=== PATIENT | female | born 1985 | race Caucasian/White ===

== ENCOUNTER 2016-07-22 11:07 | Emergency (ER) | payer OTHER ==
[~2016-07-22] VITALS: Ht 154.9 cm; Wt 75.3 kg
[~2016-07-22 11:07] MED LIST: AMOXICILLIN 50500 M1 PO; COLACE 100 MG100 MG PO; IBUPROFEN 200200 M1 PO; NAPROSYN500 MG PO; NOHOMEMEDICATIONS; NORCO 5-325 TA1 EACH PO; ONDANSETRON HCL4 M2 PO; PHENERGAN 25 MG25 M1 PO; PRENATAL COMPL1 EACH PO; TRAMADOL 50 MG50 MG PO; TYLENOL325 MG PO; ULTRAM 50MG TAB50 MG PO; VALIUM5 MG PO; ZANTAC 150MG T150 M1 PO; ZOFRAN ODT4 MG PO
[2016-07-22] MEDS ORDERED: METFORMIN HCL500 MG PO (11:42)
[2016-07-22 11:50] LABS: ABSOLUTE NEUTROPHILS 5.3 thou/uL (1.4-8.2); BASOPHILS 1.1 % (0.0-2.0); HEMATOCRIT 43.2 % (37.0-47.0); LYMPHOCYTES 31.3 % (24.0-44.0); MCH 30.2 pg (26.0-34.0); MCHC 34.7 % (28.0-37.0); MCV 87.1 fL (80.0-100.0); PLATELET COUNT 294 thou/uL (150-400); POLYS 57.6 % (36.0-66.0); RBC 4.96 mil/uL (4.20-5.00); RDW 12.5 % (10.5-14.5); WBC 9.1 thou/uL (4.0-11.0)
[2016-07-22 11:51] LABS: MANUAL DIFF NO
[2016-07-22 12:00] LABS: CALCIUM 9.6 mg/dL (8.5-10.1); CREATININE 0.9 mg/dL (0.6-1.3); POTASSIUM 3.7 mmol/L (3.5-5.1)
[2016-07-22 12:09] LABS: ALBUMIN 3.8 g/dL (3.4-5.0); TOTAL BILIRUBIN 0.3 mg/dL (<0.1-1.0); TOTAL PROTEIN 7.6 g/dL (6.4-8.2)
[2016-07-22 12:30] LABS: URINE BILIRUBIN NEGATIVE (Negative); URINE BLOOD NEGATIVE (Negative); URINE COLOR YELLOW; URINE GLUCOSE-RANDOM* NEGATIVE (Negative); URINE KETONES NEGATIVE (Negative); URINE NITRITE NEGATIVE (Negative); URINE PROTEIN (DIPSTICK) NEGATIVE (Negative); URINE SPECIFIC GRAVITY >= 1.030 (1.003-1.035); URINE UROBILINOGEN 0.2 E.U./dl (0.2-1.0)
[2016-07-22] MEDS ORDERED: REGLAN 10 MG TA10 MG PO (13:21)
[2016-09-27] MEDS ORDERED: REGLAN 10 MG TA10 MG PO (16:06)
[2016-09-27] MEDS ORDERED: PRILOSEC 20 MG20 MG PO (16:08)
== END 2016-07-22 13:27 | disposition home or self-care (01) ==
LOC: ER 11:07
PROVIDERS: Physician Assistant
DX: R10.13 Epigastric pain (principal); R11.2 Nausea with vomiting, unspecified; R19.7 Diarrhea, unspecified; Z88.5 Allergy status to narcotic agent; F17.210 Nicotine dependence, cigarettes, uncomplicated; F10.99 Alcohol use, unspecified with unspecified alcohol-induced disorder

== ENCOUNTER 2017-03-29 19:05 | Emergency (ER) | payer OTHER ==
[~2017-03-29] VITALS: Ht 154.9 cm; Wt 77.1 kg
[~2017-03-29 19:05] MED LIST changes: +METFORMIN HCL500 MG PO; +PRILOSEC 20 MG20 MG PO; +REGLAN 10 MG TA10 MG PO
[2017-03-29] MEDS ORDERED: IBUPROFEN 600600 M1 PO (20:21)
[2017-03-29] MEDS ORDERED: KEFLEX500 MG PO (20:21)
== END 2017-03-29 20:33 | disposition home or self-care (01) ==
LOC: ER 19:05
DX: S90.562A Insect bite (nonvenomous), left ankle, initial encounter (principal); F17.210 Nicotine dependence, cigarettes, uncomplicated; F10.99 Alcohol use, unspecified with unspecified alcohol-induced disorder; Z98.890 Other specified postprocedural states; Z88.5 Allergy status to narcotic agent; W57.XXXA Bitten or stung by nonvenomous insect and other nonvenomous arthropods, initial encounter; Y93.89 Activity, other specified; Y92.89 Other specified places as the place of occurrence of the external cause; Y99.8 Other external cause status

== ENCOUNTER 2017-03-31 19:47 | Emergency (ER) | payer OTHER ==
[~2017-03-31] VITALS: Ht 154.9 cm; Wt 77.1 kg
[~2017-03-31 19:47] MED LIST changes: +IBUPROFEN 600600 M1 PO; +KEFLEX500 MG PO
[2017-03-31] MEDS ORDERED: NOHOMEMEDICATIONS (19:52)
[2017-03-31 21:05] LABS: ABSOLUTE NEUTROPHILS 8.2 thou/uL (1.4-8.2); BASOPHILS 0.7 % (0.0-2.0); EOSINOPHILS 1.4 % (0.0-3.0); HEMATOCRIT 37.8 % (37.0-47.0); MANUAL DIFF NO; MCH 30.4 pg (26.0-34.0); MCHC 34.5 g/dL (28.0-37.0); MCV 88.1 fL (80.0-100.0); MONOCYTES 7.9 % (1.0-8.0); PLATELET COUNT 281 thou/uL (150-400); RBC 4.29 mil/uL (4.20-5.00); WBC 12.9 thou/uL (4.0-11.0)
[2017-03-31 21:06] LABS: URINE BILIRUBIN NEGATIVE (Negative); URINE BLOOD NEGATIVE (Negative); URINE COLOR YELLOW; URINE GLUCOSE-RANDOM* NEGATIVE (Negative); URINE KETONES NEGATIVE (Negative); URINE LEUKOCYTES-REFLEX NEGATIVE (Negative); URINE PROTEIN (DIPSTICK) NEGATIVE (Negative); URINE SPECIFIC GRAVITY >= 1.030 (1.003-1.035); URINE UROBILINOGEN 0.2 E.U./dl (0.2-1.0)
[2017-03-31 21:07] LABS: CALCIUM 8.9 mg/dL (8.5-10.1); CREATININE 0.9 mg/dL (0.6-1.0); POTASSIUM 3.6 mmol/L (3.5-5.1)
[2017-03-31 21:13] LABS: ALBUMIN 3.8 g/dL (3.4-5.0); TOTAL BILIRUBIN 0.2 mg/dL (<0.1-1.0); TOTAL PROTEIN 6.9 g/dL (6.4-8.2)
[2017-03-31] MEDS ORDERED: MOBIC15 MG PO (23:40)
== END 2017-04-01 00:24 | disposition home or self-care (01) ==
LOC: ER 19:47
PROVIDERS: Physician Assistant
DX: N83.202 Unspecified ovarian cyst, left side (principal); F17.210 Nicotine dependence, cigarettes, uncomplicated; F10.99 Alcohol use, unspecified with unspecified alcohol-induced disorder; Z88.5 Allergy status to narcotic agent

== ENCOUNTER → 2018-04-12 | Outpatient (CLI) | payer BC, OTHER ==
[~2018-04-12] MED LIST changes: +BENTYL 20 MG TA20 M1 PO; +CELEXA10 MG PO; +MOBIC15 MG PO; +PEPCID20 MG PO; +TESSALON PERLE100 MG PO; +XANAX 0.5 MG0.5 MG PO; +ZOFRAN4 MG PO
== END ==
LOC: CAT 07:45
DX: N28.1 Cyst of kidney, acquired (principal); K65.1 Peritoneal abscess; Z78.9 Other specified health status

== ENCOUNTER 2018-04-14 08:50 | Emergency (ER) | payer BC, OTHER ==
[~2018-04-14] VITALS: Ht 154.9 cm; Wt 77.1 kg
--- NOTE | ~2018-04-14 | EKG ---
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
[~2018-04-14 08:50] MED LIST changes: -TESSALON PERLE100 MG PO
[2018-04-14 09:27] LABS: ABSOLUTE NEUTROPHILS 5.1 thou/uL (1.4-8.2); BASOPHILS 0.9 % (0.0-2.0); EOSINOPHILS 1.3 % (0.0-3.0); HEMATOCRIT 43.4 % (37.0-47.0); HEMOGLOBIN 15.2 gm/dL (12.0-15.0); LYMPHOCYTES 30.8 % (24.0-44.0); MCH 31.1 pg (26.0-34.0); MCV 88.9 fL (80.0-100.0); MONOCYTES 8.5 % (1.0-8.0); PLATELET COUNT 334 thou/uL (150-400); POLYS 58.5 % (36.0-66.0); RBC 4.88 mil/uL (4.20-5.00); RDW 13.1 % (10.5-14.5); WBC 8.6 thou/uL (4.0-11.0)
[2018-04-14 09:35] LABS: POTASSIUM 3.6 mmol/L (3.5-5.1); SODIUM 136 mmol/L (136-145)
[2018-04-14 09:36] LABS: ANION GAP 8 mmol/L (7-16); BUN 13 mg/dL (7-18); CALCIUM 9.5 mg/dL (8.5-10.1); CHLORIDE 102 mmol/L (98-107); CO2 26 mmol/L (21-32); CREATININE 0.9 mg/dL (0.6-1.0); GLUCOSE 91 mg/dL (74-106)
[2018-04-14 09:39] LABS: SGOT 15 U/L (15-37); SGPT 20 U/L (30-65); TOTAL BILIRUBIN 0.5 mg/dL (<0.1-1.0); TOTAL PROTEIN 7.9 g/dL (6.4-8.2); TROPONIN-I <0.06 ng/mL (<0.06)
[2018-04-14] MEDS ORDERED: NAPROSYN500 MG PO (10:32)
[2018-04-14] MEDS ORDERED: TESSALON PERLE100 MG PO (10:32)
== END 2018-04-14 10:40 | disposition home or self-care (01) ==
LOC: ER 08:50
PROVIDERS: Physician Assistant
DX: R07.89 Other chest pain (principal); F17.210 Nicotine dependence, cigarettes, uncomplicated; Z82.49 Family history of ischemic heart disease and other diseases of the circulatory system